=== PATIENT | female | born 1970 | race American Indian/Alaskan Native ===

== ENCOUNTER 2017-03-17 06:14 | Emergency (ER) | payer SELFPAY ==
[2017-03-17 06:41] VITALS: BP 187/129
[2017-03-17 07:32] LABS: Basophils % (Auto) 0.6 % (0.0-1.8); Eosinophils % (Auto) 4.9 % (0.0-4.3); Hematocrit 38.4 % (30.3-42.9); Hemoglobin 12.8 gm/dl (10.1-14.3); Mean Corpuscular HGB Conc 33 % (30-34); Mean Corpuscular Hemoglobin 30 pg (28-32); Mean Corpuscular Volume 92 fl (79-97); Platelet Count 177 K/mm3 (140-440); Red Cell Distribution Width 14.3 % (13.2-15.2); White Blood Count 6.1 K/mm3 (4.5-11.0)
[2017-03-17 07:39] LABS: Bacteria,Urine 1+ /HPF (Negative); Bilirubin,Urine NEG (Negative); Blood,Urine NEG (Negative); Ketones,Urine NEG (Negative); Leukocyte Esterase,Urine MOD (Negative); Mucus,Urine FEW /HPF; Nitrite,Urine POS (Negative); Protein,Urine <15 mg/dL mg/dL (Negative); Urobilinogen,Urine < 2.0 mg/dL (<2.0)
[2017-03-17 07:40] LABS: Anion Gap 16 mmol/L; BUN/Creatinine Ratio 18.88; Blood Urea Nitrogen 17 mg/dL (7-17); Calcium 9.6 mg/dL (8.4-10.2); Carbon Dioxide 26 mmol/L (22-30); Chloride 102.5 mmol/L (98-107); Glucose 85 mg/dL (65-100); Potassium 4.3 mmol/L (3.6-5.0); Sodium 140 mmol/L (137-145)
--- NOTE | 2017-03-18 01:32 | ED Elopement Review ---
ED Pt Elopement review - Results review Lab results: Laboratory Tests 03/17/17 03/17/17 03/17/17 07:04 07:04 07:05 WBC 6.1 RBC 4.20 Hgb 12.8 Hct 38.4 MCV 92 MCH 30 MCHC 33 RDW 14.3 Plt Count 177 Lymph % (Auto) 37.7 H Fisher % (Auto) 9.7 H Eos % (Auto) 4.9 H Baso % (Auto) 0.6 Lymph # 2.3 Fisher # 0.6 Eos # 0.3 Baso # 0.0 Seg Neutrophils % 47.1 Seg Neutrophils # 2.9 Sodium 140 Potassium 4.3 Chloride 102.5 Carbon Dioxide 26 Anion Gap 16 BUN 17 Creatinine 0.9 Estimated GFR > 60 BUN/Creatinine Ratio 18.88 Glucose 85 Calcium 9.6 Troponin T < 0.010 Urine Color Yellow Urine Turbidity Slightly-cloudy Urine pH 5.0 Ur Specific Enterprise 1.016 Urine Protein <15 mg/dl Urine Glucose (UA) Neg Urine Ketones Neg Urine Blood Neg Urine Nitrite Pos Urine Bilirubin Neg Urine Urobilinogen < 2.0 Ur Leukocyte Esterase Mod Urine WBC (Auto) 133.0 H Urine RBC (Auto) 7.0 U Epithel Cells (Auto) 1.0 Urine Bacteria (Auto) 1+ Urine Mucus Few - Call Back decision Pt Call Back Decision: Pt to F/U with PMD (should follow up with primary care doctor for chest pain and presumed urinary tract infection)
== END 2017-03-17 07:50 | disposition left against medical advice (07) ==
LOC: ED 06:14
DX: R07.9 Chest pain, unspecified (principal); R51 Headache; I10 Essential (primary) hypertension; Z88.1 Allergy status to other antibiotic agents; Z88.8 Allergy status to other drugs, medicaments and biological substances; Z53.21 Procedure and treatment not carried out due to patient leaving prior to being seen by health care provider
CPT/HCPCS: 36415; 80048; 81001; 84484; 85025; 93005; 93010